=== PATIENT | female | born 1985 | race Caucasian/White ===

== ENCOUNTER → 2023-01-26 | Outpatient (CLI) | payer BC ==
[~2023-01-26] MED LIST: ALPRAZOLAM0.5 M1 PO; DIATRIZOATE MEGL/DIATRIZOA SOD 30 ML BTL PO ONE; FOLIC ACID0.4 MG PO; IOPAMIDOL 370 MG/ML 100 ML INFUS..BTL INJ ONE; LYRICA75 MG PO; METHOTREXATE2.5 MG PO; MULTIVITAMIN200 MCG PO; ONDANSETRON ODT4 MG PO; PLAQUENIL200 MG PO; VENLAFAXINE HCL75 MG PO
== END ==
LOC: CT 15:41 → EDBD 16:00
PROVIDERS: ATTEND Nurse Practitioner
DX: R10.84 Generalized abdominal pain (principal); K21.9 Gastro-esophageal reflux disease without esophagitis
CPT/HCPCS: 74177; 81025; Q9963; Q9967

== ENCOUNTER → 2023-02-04 | Day surgery (SDC) | payer BC ==
[~2023-02-04] MED LIST changes: -DIATRIZOATE MEGL/DIATRIZOA SOD 30 ML BTL PO ONE; +FENTANYL CITRATE/PF 100MCG/2 ML INJ ONE; -IOPAMIDOL 370 MG/ML 100 ML INFUS..BTL INJ ONE; +KETAMINE HCL INJ 50 MG/ML 10 ML VIAL ONE; +LACTATED RINGER'S 1,000 ML ONE; +LIDOCAINE HCL 2% LOCAL INJ 5 ML SDV VIAL INJ ONE; +METOCLOPRAMIDE HCL 10 MG/2ML VIAL ONE; +PROPOFOL IV EMULSION 10 MG/ML 50 ML VIAL IV ONE
[2023-02-04 13:49] VITALS: TEMP 97.3
[2023-02-04 14:25] VITALS: BP 111/80; PULSE 96; RESP 16; O2SAT 98
== END | disposition home or self-care (01) ==
LOC: EDBD → OR 10:10
PROVIDERS: ATTEND Internal Medicine Gastroenterology
DX: K20.90 Esophagitis, unspecified without bleeding (principal); D12.5 Benign neoplasm of sigmoid colon; K29.70 Gastritis, unspecified, without bleeding; K52.9 Noninfective gastroenteritis and colitis, unspecified; K22.89 Other specified disease of esophagus; K21.9 Gastro-esophageal reflux disease without esophagitis; K44.9 Diaphragmatic hernia without obstruction or gangrene; K62.89 Other specified diseases of anus and rectum; K64.8 Other hemorrhoids; Z71.3 Dietary counseling and surveillance; F41.9 Anxiety disorder, unspecified; Z79.899 Other long term (current) drug therapy; Z68.31 Body mass index [BMI] 31.0-31.9, adult; Z80.0 Family history of malignant neoplasm of digestive organs
CPT/HCPCS: 43239; 43450; 45380; 45385; 81025; 83630; 83993; 87045; 87177; 87324; 87328; 87449; C9113; J2001; J2704; J2765; J3010; J7121; 45378

== ENCOUNTER → 2024-04-23 | Outpatient (REF) | payer BC ==
[~2024-04-23] MED LIST changes: -FENTANYL CITRATE/PF 100MCG/2 ML INJ ONE; -KETAMINE HCL INJ 50 MG/ML 10 ML VIAL ONE; -LACTATED RINGER'S 1,000 ML ONE; -LIDOCAINE HCL 2% LOCAL INJ 5 ML SDV VIAL INJ ONE; -METOCLOPRAMIDE HCL 10 MG/2ML VIAL ONE; -PROPOFOL IV EMULSION 10 MG/ML 50 ML VIAL IV ONE
== END ==
LOC: US 09:09
DX: E04.1 Nontoxic single thyroid nodule (principal)
CPT/HCPCS: 10005; 88172; 88173

== ENCOUNTER → 2024-07-02 | Outpatient (REF) | payer BC | LOC: US 15:42 | PROVIDERS: ATTEND Internal Medicine Endocrinology, Diabetes & Metabolism | DX: E21.3 Hyperparathyroidism, unspecified (principal) | CPT/HCPCS: 76536 ==